=== PATIENT | male | born 1985 | race Caucasian/White ===

== ENCOUNTER 2020-06-26 12:39 | Emergency (ER) | payer BC, SELFPAY ==
[2020-06-26 12:50] VITALS: BP 140/90; PULSE 74; RESP 19; TEMP 36.6; O2SAT 100; BMI 37.3
--- NOTE | 2020-06-26 13:06 | ED_ITS ---
[facility] [place] Impression: Exposure to COVID-19 virus Disposition: Home, Self-Care Condition on Discharge: Good Instructions: Preventing the Spread of Coronavirus Discharge Instructions Referrals: Provider,Referral, [Primary Care Provider] - Time of Disposition: 13:07 Medical Decision Making - Anam Inquiry Pt receiving controlled substance: No Vital Signs: 06/26/20 12:50 Temperature 97.9 F Temperature Source Oral Pulse Rate [Right Brachial] 74 Respiratory Rate 19 Blood Pressure [Right Arm] 140/90 Blood Pressure Mean [Right Arm] 106 Blood Pressure Source [Right Arm] Automatic Cuff Blood Pressure Position [Right Arm] Sitting 02 Sat by Pulse Oximetry 100 Oxygen Delivery Method Room Air Orders (Tests/Meds): ORDERS Category Date Time Status Covid-19 Nasal PCR ([facility]) Routine Lab 06/26/20 12:44 [place]dered [facility] [place] - General Stated complaint: covid test for work Time Seen by Provider: 06/26/20 13:06 Mode of Arrival: Ambulatory Source of Information: Patient Limitations: No Limitations Description of Symptoms (Recalled from Triage Doc. by RN): PATIENT NEEDING COVID TEST AFTER BEING EXPOSED AT WORK HEENT Symptoms (Recalled from RN notes): No Resp Symptoms (Recalled from RN notes): No Skin Symptoms (Recalled from RN notes): No MS Symptoms (Recalled from RN notes): No Functional Status (Recalled from RN notes): WNL - History of Present Illness Provider Complaint: Patient exposed to COVID19 last week at work. Needs negative test to return to work. Denies symptoms at this time. Onset (ago): week(s) (1) Relieving factors: none Exacerbating factors: none Associated symptoms: denies other symptoms Treatments prior to arrival: none - Worker's Comp Is this a Worker's Comp case?: No [facility] History - Hepatitis A Screen Drug use history?: No High risk sexual behaviors?: No History of sexually transmitted infection?: No Currently employed?: No Childcare worker?: No Do you have indoor plumbing?: Yes Do you have electricity?: Yes Attestation statement:: This patient has been screened for Hepatitis A risk factors. I have reviewed the patient's past medical history: Yes ROS Obtained: Yes All systems reviewed & no additional complaints Physical Exam - General General appearance: alert, in no apparent distress - Head Head exam: normocephalic - Eye Eye exam: Present: PERRL - ENT ENT exam: Present: normal oropharynx, TM's normal bilaterally - Neck Neck exam: Present: normal inspection. Absent: lymphadenopathy - Chest Chest inspection: Present: normal inspection, symmetric chest wall rise - Respiratory Respiratory exam: Present: normal lung sounds bilaterally - Cardiovascular Cardiovascular exam: Present: regular rate, normal rhythm - Neurological Exam Neurological exam: Present: alert, oriented X3 - Psychiatric Psychiatric exam: Present: normal affect, normal mood - Skin Skin exam: Present: warm, dry
[2020-06-26 13:28] VITALS: BP 140/90; PULSE 74; RESP 19; TEMP 36.6; O2SAT 100
== END 2020-06-26 13:30 | disposition home or self-care (01) ==
PROVIDERS: Emergency Provider Physician Assistant
DX: Z20.822 Contact with and (suspected) exposure to COVID-19 (principal)
CPT/HCPCS: 99202; G0463; U0003

== ENCOUNTER → 2021-02-24 11:11 | Outpatient (CLI) | payer BC, SELFPAY | PROVIDERS: Visit Provider Nurse Practitioner | DX: U07.1 COVID-19 (principal) | CPT/HCPCS: C9803; U0003; U0005 ==

== ENCOUNTER 2022-02-02 11:10 | Emergency (ER) | payer SELFPAY ==
--- NOTE | 2022-02-02 11:59 | EXP.UTC ---
Discharge Plan Disposition Patient Disposition: Home, Self-Care Condition: Good Prescriptions Prescriptions: New ofloxacin 0.3 % drops See Rx Instructions .ROUTE .COMPLEX Qty: 5 0RF Rx Instructions: put 2 drps into affected eye every 2 h x 2 days, then 1 drp 4 times/day days 3-7 Referrals Follow up/Referrals: Provider,Referral, MD [Primary Care Provider] - See instructions Activity Restrictions/Add. Instructions Additional Instructions/Restrictions: Use the eye drops as directed. Strict hand washing in the house hold, because conjunctivitis is very contagious. Follow up with your regular doctor. GO TO THE ER FOR ANY WORSENING SYMPTOMS OR CONCERNS Clinical Impressions Clinical Impression: Conjunctivitis of right eye Stand Alone Forms Stand Alone Forms: Work/School Release Instructions Patient Instructions: How to Instill Eye Drops, DI for Conjunctivitis Discharge ED Provider: Giorgi Alvarado [facility] [place] General Stated complaint: possible pink eye in Rt eye Time Seen by Provider: 02/02/22 11:59 History of Present Illness Provider Complaint: He states that for the past 1 day he has had right eye redness and discharge. He denies any injury or foreign body. Related Data Previous Rx's Medication Instructions Recorded ofloxacin 0.3 % eye drops See Rx Instructions ophthalmic 02/02/22 (eye) .COMPLEX #5 mL Allergies Allergy/AdvReac Type Severity Reaction Status Date / Time cefaclor [From Ceclor] Allergy Verified 02/02/22 12:09 [facility] Disclaimer: The information contained in this section may have been updated after the patient was seen, as this information can be updated by other users. Social History Smoking Status: Never smoker alcohol intake: never current occupational status: employed Travel in the last 8 weeks: None ROS Obtained: Yes All systems reviewed & no additional complaints except as documented Constitutional Constitutional: Denies chills and Denies fever(s) Eyes Eyes: Reports eye discharge ENT Ears, Nose, Mouth, and Throat: Denies dizziness, Denies otalgia and Denies sore throat Cardiovascular Cardiovascular: Denies chest pain Respiratory Respiratory: Denies shortness of breath, Denies chest congestion, Denies cough, Denies stridor and Denies wheezing Gastrointestinal Gastrointestingal: Denies nausea or vomiting Musculoskeletal Musculoskeletal: Reports system reviewed and no additional complaints, except as documented and Denies arthralgias Integumentary/Breasts Skin/Breast: Denies rash Neurologic Neurologic: Denies dizziness and Denies paresthesias Allergic/Immunologic Allergic/Immunologic: Denies wheezing Physical Exam General General appearance: alert and in no apparent distress Head Head exam: atraumatic, normocephalic and normal inspection Eye Eye exam: Present PERRL and EOMI Expanded Eye Exam Eyelids: left: normal inspection and right: erythema Pupils: Left: size (3), Right: size (3) and Bilateral: regular, round and reactive Sclera/Conjunctival: left: normal inspection and right: injection and exudate ENT ENT exam: Present normal exam, normal oropharynx, mucous membranes moist, TM's normal bilaterally and normal external ear exam Neck Neck exam: Present normal inspection, full ROM and trachea midline; Absent meningismus or lymphadenopathy Chest Chest inspection: Present normal inspection and symmetric chest wall rise; Absent tenderness Respiratory Respiratory exam: Present normal lung sounds bilaterally; Absent respiratory distress Cardiovascular Cardiovascular exam: Present regular rate and normal rhythm; Absent JVD Abdominal Exam Abdominal exam: Present soft and normal bowel sounds; Absent distention, tenderness or guarding Extremities Exam Extremities exam: Present normal inspection, full ROM and normal capillary refill; Absent calf tenderness Back Exam Back exam: Present normal ins
[2022-02-02 12:03] VITALS: BP 133/78; PULSE 81; RESP 18; TEMP 36.7; O2SAT 99; BMI 39.4
[2022-02-02 12:20] VITALS: BP 133/78; PULSE 81; RESP 18; TEMP 36.7
== END 2022-02-02 12:20 | disposition home or self-care (01) ==
PROVIDERS: Emergency Provider Nurse Practitioner Family
DX: H10.9 Unspecified conjunctivitis (principal); Z88.8 Allergy status to other drugs, medicaments and biological substances
CPT/HCPCS: 99213; G0463

== ENCOUNTER → 2022-06-16 15:49 | Outpatient (CLI) | payer OTHER, SELFPAY ==
[2022-06-16 16:11] LABS: Basophils % 0.4 % (0.1-2.0); Eosinophils # 0.2 K/mm3 (0.0-0.4); Eosinophils % 1.9 % (0.1-12.0); Hematocrit 45.8 % (42.0-52.0); Hemoglobin 15.5 g/dL (14.1-18.0); Lymphocytes % 20.9 % (10-50); Mean Corpuscular HGB Conc 33.9 g/dL (31.8-35.4); Mean Corpuscular Hemoglobin 30.8 pg (27.0-31.2); Mean Corpuscular Volume 90.7 fl (80-94); Monocytes # 0.5 K/mm3 (0.1-1.0); Monocytes % 5.3 % (1.7-9.3); Neutrophils # 6.9 K/mm3 (1.8-7.8); Neutrophils % 71.5 % (37.0-80.0); Platelet Count 286 K/mm3 (142-424); Red Blood Count 5.05 M/mm3 (4.60-6.20); Red Cell Distribution Width 13.1 % (11.5-17.5); White Blood Count 9.6 K/mm3 (4.8-10.8)
[2022-06-16 16:39] LABS: Alanine Aminotransferase 40 U/L (12-78); Albumin Level 4.4 g/dl (3.5-5.0); Anion Gap 11.4 mEq/L (5-15); Aspartate Amino Transferase 29 U/L (17-59); Bilirubin,Total 0.5 mg/dl (0.2-1.3); Blood Urea Nitrogen 12 mg/dl (9-20); Calcium 8.7 mg/dl (8.4-10.2); Carbon Dioxide 27 mmol/L (22.0-30.0); Chloride 103 mmol/L (98-107); Estimated Glomerular Filt Rate 94 ml/min (>60); GFR (African American) 114 ML/MIN (>60); Globulin 2.6 g/dL (1.3-3.2); Glucose 97 mg/dl (74-100); Potassium 4.4 mmoL/L (3.5-5.1); Sodium 137 mmol/L (136-145)
[2022-06-16 16:40] LABS: Albumin/Globulin Ratio 1.7 (1.1-1.8); Alkaline Phosphatase 74 U/L (38-126); Cholesterol 174 mg/dl (140-200); HDL Cholesterol 44 mg/dl (40-60); Triglycerides 165 mg/dl (30-150); VLDL Cholesterol 33 mg/dL (0-40)
[2022-06-16 16:57] LABS: 25-OH Vitamin D, Total 29.3 ng/mL (30-100)
[2022-06-16 17:10] LABS: Thyroid Stimulating Hormone 1.59 uIU/mL (0.465-4.68)
[2022-06-16 17:58] LABS: Direct LDL Cholesterol 104.63 mg/dL (100-129)
[2022-06-18 08:22] LABS: Testosterone,Total 348 ng/dL (264-916)
== END ==
PROVIDERS: Visit Provider Student in an Organized Health Care Education/Training Program
DX: R53.83 Other fatigue (principal); E55.9 Vitamin D deficiency, unspecified; Z79.899 Other long term (current) drug therapy
CPT/HCPCS: 36415; 80053; 80061; 82306; 84403; 84443; 85025

== ENCOUNTER 2023-05-12 06:57 | Emergency (ER) | payer OTHER, SELFPAY ==
[2023-05-12 06:59] VITALS: BP 134/87; PULSE 79; RESP 16; TEMP 36.4; O2SAT 96; BMI 40.6
--- NOTE | 2023-05-12 07:12 | CT_ITS ---
FINAL REPORT TECHNIQUE: Axial images through the abdomen and pelvis were performed without contrast. This study was performed with techniques to keep radiation doses as low as reasonably achievable, (ALARA). Individualized dose reduction techniques using automated exposure control or adjustment of mA and/or kV according to the patient's size were employed. CLINICAL HISTORY: left flank pain FINDINGS: ABDOMEN: The lung bases are clear. The heart size is normal. Limited images of the liver are unremarkable. The spleen is normal. No adrenal mass is identified. The aorta is normal in caliber. There is no significant free fluid or adenopathy. There are multiple small bilateral nonobstructing renal stones measuring up to 3 mm. There is a 21 mm increased attenuation right renal mass which can not be characterized without contrast, may represent a hyperdense cyst. There is moderate left hydronephrosis and hydroureter secondary to a 3 mm left UVJ stone. PELVIS: The appendix is normal. The urinary bladder is unremarkable. There is no significant free fluid or adenopathy. IMPRESSION: Moderate left hydronephrosis and hydroureter secondary to an obstructing UVJ stone. Bilateral nephrolithiasis. Reviewed, Interpreted and Dictated by Francisco J Coelho III, MD Transcribed by Elvira Collazo Authenticated and [facility]
--- NOTE | 2023-05-12 07:14 | HMH.EDGENADL ---
Discharge Plan Disposition Patient Disposition: Home, Self-Care Prescriptions Prescriptions: New ibuprofen 800 mg tablet 800 mg PO TID PRN (Reason: pain) 7 Days Qty: 20 0RF hydrocodone-acetaminophen 5-325 mg tablet 1 tab PO Q6H PRN (Reason: pain) 3 Days Qty: 12 0RF tamsulosin [Flomax] 0.4 mg capsule 0.4 mg PO DAILY 7 Days Qty: 7 0RF ondansetron 4 mg tablet,disintegrating 4 mg PO Q6H PRN (Reason: nausea and vomiting) 5 Days Qty: 20 0RF No Action sildenafil 50 mg tablet 50 mg PO DAILY PRN (Reason: sexual activity) Qty: 14 0RF Rx Instructions: administer 30 minutes to 4 hours before activity Referrals Follow up/Referrals: Johnie Wan MD [Staff Physician] - See instructions Provider,MD Deborah [Primary Care Provider] - See instructions Activity Restrictions/Add. Instructions Additional Instructions/Restrictions: You have a 4 mm stone at the ureteral vesicular junction causing an obstruction. This is almost out and most likely will pass on its own however if you are not improving please follow-up with our urologist Dr. Wan or return to the emergency department with refractory pain nausea or high fevers. Clinical Impressions Clinical Impression: Hydronephrosis concurrent with and due to calculi of kidney and ureter Instructions Patient Instructions: DI for Urinary Tract Infection (UTI), DI for Urinary Tract Infection in Children Discharge ED Provider: Hina Chin General Adult HPI General Chief complaint: Urogenital-Male Stated complaint: pain left side, history of kidney stones Time Seen by Provider: 05/12/23 07:08 Mode of Arrival: Ambulatory Source of Information: Patient Limitations: No Limitations Description of Symptoms (Recalled from ER Triage Doc. by RN): Patient complaint of left flank pain that started this morning. States that he has had kidney stones in the past and that he knew when this pain started this morning that he may have another kidney stone. Denies nausea or vomiting. History of Present Illness HPI narrative: Patient is a 37-year-old male presenting today with left flank pain. Has a history of a kidney stone that was diagnosed 10 years ago and states his pain is similar to that. Did not have to have any surgical intervention in the past. Denies any hematuria. Denies any nausea or vomiting. Denies any diarrhea constipation hematuria dysuria urgency etc. No fevers or chills. No other past medical problems. Related Data Previous Rx's Medication Instructions Recorded sildenafil 50 mg tablet 50 mg PO DAILY PRN sexual activity 06/23/22 #14 tabs hydrocodone 5 mg-acetaminophen 325 1 tab PO Q6H PRN pain 3 days #12 05/12/23 mg tablet tabs ibuprofen 800 mg tablet 800 mg PO TID PRN pain 7 days #20 05/12/23 tabs ondansetron 4 mg disintegrating 4 mg PO Q6H PRN nausea and 05/12/23 tablet vomiting 5 days #20 tabs tamsulosin 0.4 mg capsule (Flomax) 0.4 mg PO DAILY 7 days #7 caps 05/12/23 Allergies Allergy/AdvReac Type Severity Reaction Status Date / Time cefaclor [From [facility]] Allergy Verified 06/15/22 15:59 [facility] Disclaimer: The information contained in this section may have been updated after the patient was seen, as this information can be updated by other users. Social History Smoking Status: Never smoker alcohol intake: never current occupational status: employed Travel in the last 8 weeks: None ROS Obtained: Yes All systems reviewed & no additional complaints except as documented Physical Exam General General appearance: alert and in no apparent distress Respiratory Respiratory exam: Present normal lung sounds bilaterally Cardiovascular Cardiovascular exam: Present regular rate and normal rhythm Abdominal Exam Abdominal exam: Present soft; Absent distention or tenderness Back Exam Back exam: Absent CVA tenderness (R) or CVA tenderness (L) Neurological Exam Neurological exam: Present alert and oriented X3 Medical Decision Making Anam Inquiry Pt receiving controlled substance: No Vital Signs: 05/12/23 06:59 Temperature 97.6 F Temperature Source Oral Pulse Rate [Radial] 79 Respiratory Rate 16 Blood Pressure [Right Arm] 134/87 Blood Pressure Mean [Right Arm] 102 Blood Pressure Source [Right Arm] Automatic Cuff Blood Pressure Position [Right Arm] Sitting 02 Sat by Pulse Oximetry 96 Oxygen Delivery Method Room Air Lab Data Lab results reviewed: Yes I reviewed the patient's lab results. Lab Results 05/12/23 07:05: WBC 6.5, RBC 5.04, Hgb 15.5, Hct 48.2, MCV 95.6 H, MCH 30.7, MCHC 32.1, RDW 12.9, Plt Count 268, MPV 7.6, Neut % (Auto) 64.4, Lymph % (Auto) 22.0, Grant % (Auto) 7.2, Eos % (Auto) 5.2, Baso % (Auto) 1.1, Neut # (Auto) 4.2, Lymph # (Auto) 1.4, Grant # (Auto) 0.5, Eos # (Auto) 0.3, Baso # (Auto) 0.1, Sodium 140, Potassium 4.0, Chloride 105, Carbon Dioxide 30, Anion Gap 9.0, BUN 15, Creatinine 1.10, Estimated Creat Clear 164, Estimated GFR 75, Est GFR ( Amer) 90, Glucose 148 H, Calcium 9.2, Total Bilirubin 0.3, AST 33, ALT 48, Alkaline Phosphatase 62, Total Protein 7.1, Albumin 4.4, Globulin 2.7, Albumin/Globulin Ratio 1.6, Urine Color Yellow, Urine Appearance Clear, Urine pH 6.0, Ur Specific Berry 1.010, Urine Protein Negative, Urine Glucose (UA) Negative, Urine Ketones Negative, Urine Blood Trace-i, Urine Nitrate Negative, Urine Bilirubin Negative, Urine Urobilinogen 0.2, Ur Leukocyte Esterase Negative, Urine RBC Occasional, Urine WBC None, Ur Squamous Epith Cells Occasional, Urine Bacteria Trace 05/12/23 07:05 05/12/23 07:05 Orders (Tests/Meds): ED MEDICATIONS Generic Name Dose Route Start Last Admin Trade Name Freq PRN Reason Stop Dose Admin Sodium Chloride 10 ml 05/12/23 07:15 Sodium Chloride 0.9% 10ml Flush Syringe IV 06/11/23 07:14 NEEDED PRN Maintain IV Site Discontinued Medications Generic Name Dose Route Start Last Admin Trade Name Freq PRN Reason Stop Dose Admin Lactated Ringer's 1,000 mls @ 999 mls/hr 05/12/23 07:15 05/12/23 07:21 Lactated Ringer's 1000 Ml Bag IV 05/12/23 08:15 999 mls/hr .Q1H1M CONSTANTIN Administration Ketorolac Tromethamine 15 mg 05/12/23 07:12 05/12/23 07:21 Ketorolac 30mg/Ml Vial IV 05/12/23 07:13 15 mg ONCE ONE Administration Ondansetron HCl 4 mg 05/12/23 07:12 05/12/23 07:21 Ondansetron 4mg/2ml Vial IV 05/12/23 07:13 4 mg ONCE ONE Administration ORDERS Category Date Time Status CT abdomen pelvis wo con Stat Cat Scan 05/12/23 07:12 Taken CBC w/Auto Diff [Complete Blood Count Auto Diff] Stat Lab 05/12/23 07:05 Completed CMP [Comprehensive Metabolic Panel] Stat Lab 05/12/23 07:05 Completed UA [Urinalysis and Microscopic] Stat Lab 05/12/23 07:05 Completed Medical Decision Narrative: Patient is a 37-year-old male presenting today with left flank pain concerning for possible kidney stone. Other pathology on differential could be musculoskeletal discomfort, diverticulitis or colitis, constipation etc. Will get a noncontrasted CT scan to further evaluate in addition to labs IV fluids pain medicine nausea medicine have been administered will reassess. Reassessment 817 patient feeling much better serial exams improved and benign. CT scan performed which I personally interpreted which shows a 3 to 4 mm stone at the distal ureterovesicular junction causing hydronephrosis and hydroureter. This statistically is most likely going to pass. He has been given a prescription of [place] ibuprofen Flomax and Zofran for symptoms. Return precautions emphasized including refractory pain high fevers etc. He is also been given a referral to our urologist. Formal radiology read is pending I will call the patient if there is any other significant findings. Patient was discharged in improved condition. Critical Care Critical Care Time Critical Care Time: No
[2023-05-12 07:17] LABS: Microscopic, Urine URINE MICROSCOPIC (MICROSCOPIC)
[2023-05-12] MEDS: KETOROLAC 30MG/ML VIAL 15 MG IV (07:21)
[2023-05-12] MEDS: LACTATED RINGERS 1000ML 1,000 ML 999 ML IV (07:21)
[2023-05-12] MEDS: ONDANSETRON 4MG/2ML VIAL 4 MG IV (07:21)
[2023-05-12 07:22] LABS: Basophils # 0.1 K/mm3 (0-0.2); Basophils % 1.1 % (0.1-2.0); Eosinophils # 0.3 K/mm3 (0.0-0.4); Eosinophils % 5.2 % (0.1-12.0); Hematocrit 48.2 % (42.0-52.0); Hemoglobin 15.5 g/dL (14.1-18.0); Lymphocytes # 1.4 K/mm3 (0.7-4.5); Mean Corpuscular HGB Conc 32.1 g/dL (31.8-35.4); Mean Corpuscular Hemoglobin 30.7 pg (27.0-31.2); Mean Corpuscular Volume 95.6 fl (80-94); Mean Platelet Volume 7.6 fl (7.4-10.4); Monocytes # 0.5 K/mm3 (0.1-1.0); Monocytes % 7.2 % (1.7-9.3); Neutrophils # 4.2 K/mm3 (1.8-7.8); Neutrophils % 64.4 % (37.0-80.0); Platelet Count 268 K/mm3 (142-424); Red Blood Count 5.04 M/mm3 (4.60-6.20); Red Cell Distribution Width 12.9 % (11.5-17.5); White Blood Count 6.5 K/mm3 (4.8-10.8)
[2023-05-12 07:25] LABS: Appearance,Urine CLEAR (Clear); Bilirubin,Urine Negative (Negative); Blood, Urine TRACE-I (Negative); Color,Urine YELLOW (Yellow); Glucose,Urine (UA) Negative (Negative); Ketones,Urine Negative (Negative); Leukocyte Esterase,Urine Negative (Negative); Nitrate,Urine Negative (Negative); Protein,Urine Negative (Negative); Urobilinogen,Urine 0.2 EU/dl (0.2)
[2023-05-12 07:30] LABS: Alanine Aminotransferase 48 U/L (12-78); Albumin Level 4.4 g/dl (3.5-5.0); Albumin/Globulin Ratio 1.6 (1.1-1.8); Alkaline Phosphatase 62 U/L (38-126); Aspartate Amino Transferase 33 U/L (17-59); Bilirubin,Total 0.3 mg/dl (0.2-1.3); Blood Urea Nitrogen 15 mg/dl (9-20); Calcium 9.2 mg/dl (8.4-10.2); Carbon Dioxide 30 mmol/L (22.0-30.0); Chloride 105 mmol/L (98-107); Creatinine Clearance Estimated 164 mL/min (50-200); Estimated Glomerular Filt Rate 75 ml/min (>60); GFR (African American) 90 ML/MIN (>60); Globulin 2.7 g/dL (1.3-3.2); Glucose 148 mg/dl (74-100); Sodium 140 mmol/L (136-145); Total Protein,Serum 7.1 g/dl (6.3-8.2)
[2023-05-12 07:40] LABS: Bacteria,Urine Trace /lpf; RBC,Urine Occasional #/hpf (0-3); Squamous Epithelial Cell,Urine Occasional #/hpf (0-5)
[2023-05-12 08:02] VITALS: BP 131/76; PULSE 72; RESP 18; O2SAT 97
[2023-05-12 08:19] VITALS: BP 131/76; PULSE 78; RESP 16; TEMP 36.5; O2SAT 97
== END 2023-05-12 08:20 | disposition home or self-care (01) ==
PROVIDERS: Emergency Provider Student in an Organized Health Care Education/Training Program
DX: N13.2 Hydronephrosis with renal and ureteral calculous obstruction (principal); R10.9 Unspecified abdominal pain
CPT/HCPCS: 74176; 80053; 81001; 85025; 96361; 96374; 96375; 99285; J2405

== ENCOUNTER 2024-10-11 13:51 | Outpatient (CLI) | payer BC, SELFPAY ==
[2024-10-11 14:28] LABS: Hematocrit 43.5 % (42.0-52.0); Hemoglobin 15.3 g/dL (14.1-18.0); Immature Granulocytes % 0.3 %; Mean Corpuscular HGB Conc 35.2 g/dL (31.8-35.4); Mean Corpuscular Hemoglobin 31.1 pg (27.0-31.2); Mean Corpuscular Volume 88.4 fl (80-94); Nucleated Red Blood Cells % 0 %; Platelet Count 256 K/mm3 (142-424); Red Blood Count 4.92 M/mm3 (4.60-6.20); Red Cell Distribution Width-SD 38.0 fL; White Blood Count 6.3 K/mm3 (4.8-10.8)
[2024-10-11 14:49] LABS: Albumin Level 4.7 g/dl (3.5-5.0); Chloride 106 mmol/L (98-107); Potassium 4.6 mmoL/L (3.5-5.1); Sodium 143 mmol/L (136-145)
[2024-10-11 14:52] LABS: Alanine Aminotransferase 46 U/L (12-78); Albumin/Globulin Ratio 1.8 (1.1-1.8); Alkaline Phosphatase 74 U/L (38-126); Anion Gap 15.6 mEq/L (5-15); Aspartate Amino Transferase 32 U/L (17-59); Bilirubin,Total 0.7 mg/dl (0.2-1.3); Blood Urea Nitrogen 16 mg/dl (9-20); Calcium 9.3 mg/dl (8.4-10.2); Carbon Dioxide 26 mmol/L (22.0-30.0); Creatinine,Serum 0.90 mg/dl (0.66-1.25); Estimated Glomerular Filt Rate 93 ml/min (>60); GFR (African American) 113 ML/MIN (>60); Globulin 2.6 g/dL (1.3-3.2); Glucose 136 mg/dl (74-100); Total Protein,Serum 7.3 g/dl (6.3-8.2)
== END 2024-10-11 23:59 | disposition home or self-care (01) ==
LOC: LAB 13:53
PROVIDERS: Visit Provider Urology
DX: R53.83 Other fatigue (principal)
CPT/HCPCS: 36415; 80053; 82670; 84402; 84403; 85025